=== PATIENT | male | born 1960 | race Hispanic/Latino ===

== ENCOUNTER 2016-08-01 16:55 | Emergency (ER) | payer OTHER ==
[~2016-08-01] VITALS: Ht 180.3 cm; Wt 85.9 kg
[~2016-08-01 16:55] MED LIST: ALPRAZOLAM2 MG PO; AMBIEN5 M1; ATARAX,VISTARIL25 MG PO; AUGMENTIN 875-1 EACH PO; AVINZA30 MG PO; Bactrim,Septra DS 80 PO; COLACE100 MG PO; CYCLOBENZAPRINE10 MG PO; DESYREL100 MG PO; DESYREL300 MG PO; DULCOLAX5 MG PO; DUONEB3 ML IH; Desyrel 150 MG Tab PO; Dilaudid PO; ENDOCET 5-3251 EACH PO; FLEXERIL5 MG PO; Flexeril PO; INDOCIN25 MG PO; Keflex PO; LEVOQUIN; LIDODERM 5% P1 PATCH TD; LORAZEPAM0.5 MG PO; LORCET PO; MIRALAX17 GM PO; MOBIC15 MG PO; MOBIC7.5 MG PO; MORPHINE SULFAT30 M1 PO; MORPHINE SULFAT60 MG PO; OXYCODONE HCL15 MG PO; PERCOCET 10-321 EACH PO; PERCOCET 5/31 TABLET PO; PREDNISONE10 MG PO; PREDNISONE20 MG PO; PROVENTIL,2.5 MG/0.5 IH; Proventil,Ventolin H IH; SERTRALINE HCL100 MG PO; VENTOLIN INHALER IH; ZOLOFT100 MG PO; ZOLOFT50 MG PO; Zoloft PO; [UNRECOGNIZED DRUG - OTHER] IH
[2016-08-01] MEDS ORDERED: PREDNISONE20 MG PO (19:29)
[2016-08-01] MEDS ORDERED: FIORICET 50-301 EACH PO (19:29)
[2016-08-01] MEDS ORDERED: VALIUM5 MG PO ×2 (19:29→19:35)
[2016-08-01 19:52] VITALS: BP 150/84
== END 2016-08-01 19:54 | disposition home or self-care (01) ==
LOC: EME 16:55 → EXP 16:55
DX: M50.30 Other cervical disc degeneration, unspecified cervical region (principal); M62.838 Other muscle spasm; G44.209 Tension-type headache, unspecified, not intractable; J44.9 Chronic obstructive pulmonary disease, unspecified; I10 Essential (primary) hypertension; K21.9 Gastro-esophageal reflux disease without esophagitis; F17.200 Nicotine dependence, unspecified, uncomplicated
CPT/HCPCS: 99281; 99284; J7512

== ENCOUNTER 2016-08-16 02:00 | Emergency (ER) | payer OTHER ==
[~2016-08-16] VITALS: Ht 180.3 cm; Wt 86.9 kg
[~2016-08-16 02:00] MED LIST changes: +FIORICET 50-301 EACH PO; +VALIUM5 MG PO
[2016-08-16 02:27] LABS: HEMATOCRIT 44.1 % (38.0-50.0); MCH 27.4 PG (29.0-34.0); MCHC 32.7 G/DL (30.0-36.0); MCV 83.8 FL (86-99); MEAN PLAT.VOLUME 9.8 uM^3 (9.0-12.4); PLATELET COUNT 304 K/uL (156-360); RBC DIS.WIDTH-CV 13.2 % (11.8-14.6); RBC DIS.WIDTH-SD 40.5 % (39-53); RED BLOOD COUNT 5.26 M/uL (4.00-5.50); WHITE BLOOD COUNT 10.7 K/uL (4.1-10.2)
[2016-08-16 02:38] LABS: CHLORIDE 108 mEq/L (99-109); POTASSIUM 3.5 mEq/L (3.7-5.4); SODIUM 143 mEq/L (136-147)
[2016-08-16 02:40] LABS: GLUCOSE 100 mg/dL (70-99)
[2016-08-16 02:41] LABS: ANION GAP 10 MEQ/L (2-14)
[2016-08-16 02:44] LABS: GFR ESTIMATE (CALCULATED) > 59 mL/min/; UREA NITROGEN (BUN) 17 mg/dL (9-23)
[2016-08-16 02:48] LABS: TROP-I INTERPRETATION NEGATIVE; TROPONIN-I < 0.01 ng/mL (0.0-0.30)
[2016-08-16 05:29] LABS: TROP-I INTERPRETATION NEGATIVE; TROPONIN-I < 0.01 ng/mL (0.0-0.30)
[2016-08-16 06:01] VITALS: BP 129/86
== END 2016-08-16 06:03 | disposition home or self-care (01) ==
LOC: EME 02:00
PROVIDERS: Emergency Medicine
DX: R07.9 Chest pain, unspecified (principal); Z82.49 Family history of ischemic heart disease and other diseases of the circulatory system; F17.200 Nicotine dependence, unspecified, uncomplicated
CPT/HCPCS: 71020; 80048; 84484; 85027; 93005; 99281; 99284

== ENCOUNTER 2017-04-07 18:48 | Emergency (ER) | payer OTHER ==
[~2017-04-07] VITALS: Ht 180.3 cm; Wt 84.6 kg
[2017-04-07 22:28] VITALS: BP 148/83
== END 2017-04-07 22:31 | disposition home or self-care (01) ==
LOC: EME 18:48
DX: S29.012A Strain of muscle and tendon of back wall of thorax, initial encounter (principal); S56.116A Strain of flexor muscle, fascia and tendon of left ring finger at forearm level, initial encounter; W18.39XA Other fall on same level, initial encounter; K21.9 Gastro-esophageal reflux disease without esophagitis; J44.9 Chronic obstructive pulmonary disease, unspecified; I10 Essential (primary) hypertension; G89.29 Other chronic pain; F41.9 Anxiety disorder, unspecified; F32.9 Major depressive disorder, single episode, unspecified; Z87.891 Personal history of nicotine dependence; Z88.0 Allergy status to penicillin; Z88.6 Allergy status to analgesic agent
CPT/HCPCS: 72070; 72100; 73140; 99281; 99284; J3010

== ENCOUNTER 2017-06-26 18:17 | Emergency (ER) | payer OTHER ==
[~2017-06-26] VITALS: Ht 180.3 cm; Wt 82.8 kg
[2017-06-26 21:39] LABS: HEMATOCRIT 41.7 % (38.0-50.0); HEMOGLOBIN 13.7 G/DL (12.5-16.6); MCHC 32.9 G/DL (30.0-36.0); MCV 85.1 FL (86-99); PLATELET COUNT 273 K/uL (156-360); RBC DIS.WIDTH-CV 13.1 % (11.8-14.6); RBC DIS.WIDTH-SD 40.6 % (39-53); WHITE BLOOD COUNT 7.1 K/uL (4.1-10.2)
[2017-06-26 21:51] LABS: ALBUMIN 4.2 g/dL (3.2-4.8); CHLORIDE 107 mEq/L (99-109); POTASSIUM 4.5 mEq/L (3.7-5.4); SODIUM 143 mEq/L (136-147)
[2017-06-26 21:54] LABS: GLUCOSE 93 mg/dL (70-99); TOTAL PROTEIN 6.9 g/dL (6.4-8.3)
[2017-06-26 21:56] LABS: TOTAL BILIRUBIN 0.4 mg/dL (0.0-1.0)
[2017-06-26 21:57] LABS: ALKALINE PHOSPHATASE 108 IU/L (3-129); GFR ESTIMATE (CALCULATED) > 59 mL/min/ (58.99-99999)
[2017-06-26 21:58] LABS: UREA NITROGEN (BUN) 12 mg/dL (9-23)
[2017-06-26 21:59] LABS: AST (GOT) 17 IU/L (2-34)
[2017-06-26 22:00] LABS: ALT (GPT) 16 IU/L (3-49)
[2017-06-26 22:40] LABS: APPEARANCE CLEAR ((CLEAR)); BILIRUBIN NEGATIVE; BLOOD NEGATIVE; COLOR STRAW ((YELLOW)); GLUCOSE (STRIP) NEGATIVE; KETONES NEGATIVE; LEUKOCYTES NEGATIVE; NITRITE NEGATIVE; PROTEIN (STRIP) NEGATIVE; SPECIFIC GRAVITY 1.006 (1.000-1.030); UCUL ADDED? NO; UROBILINOGEN 0.2 MG/DL (0.2-1.0)
[2017-06-26] MEDS ORDERED: ULTRACET1 TABLET PO (22:51)
[2017-06-26 23:06] VITALS: BP 137/79
== END 2017-06-26 23:07 | disposition home or self-care (01) ==
LOC: EME 18:17
PROVIDERS: Physician Assistant Medical
DX: R10.9 Unspecified abdominal pain (principal); Z88.0 Allergy status to penicillin; Z88.6 Allergy status to analgesic agent
CPT/HCPCS: 74176; 80053; 81003; 85027; 99281; 99284

== ENCOUNTER 2017-07-01 01:14 | Emergency (ER) | payer OTHER ==
[~2017-07-01] VITALS: Ht 180.3 cm; Wt 81.8 kg
[~2017-07-01 01:14] MED LIST changes: +ULTRACET1 TABLET PO
[2017-07-01 01:33] LABS: HEMATOCRIT 41.9 % (38.0-50.0); HEMOGLOBIN 13.9 G/DL (12.5-16.6); MCH 27.8 PG (29.0-34.0); MCHC 33.2 G/DL (30.0-36.0); MCV 83.8 FL (86-99); PLATELET COUNT 277 K/uL (156-360); RBC DIS.WIDTH-SD 39.5 % (39-53); WHITE BLOOD COUNT 6.8 K/uL (4.1-10.2)
[2017-07-01 01:41] LABS: CHLORIDE 107 mEq/L (99-109); POTASSIUM 4.2 mEq/L (3.7-5.4); SODIUM 141 mEq/L (136-147)
[2017-07-01 01:43] LABS: GLUCOSE 97 mg/dL (70-99)
[2017-07-01 01:47] LABS: CREATININE 1.1 mg/dL (0.6-1.3); GFR ESTIMATE (CALCULATED) > 59 mL/min/ (58.99-99999); UREA NITROGEN (BUN) 11 mg/dL (9-23)
[2017-07-01 01:54] LABS: TROP-I INTERPRETATION NEGATIVE; TROPONIN-I 0.01 ng/mL (0.0-0.30)
[2017-07-01 02:58] VITALS: BP 148/108
== END 2017-07-01 02:59 | disposition home or self-care (01) ==
LOC: EME 01:14
DX: R07.89 Other chest pain (principal); F32.9 Major depressive disorder, single episode, unspecified; Z63.4 Disappearance and death of family member; I10 Essential (primary) hypertension; J44.9 Chronic obstructive pulmonary disease, unspecified; K21.9 Gastro-esophageal reflux disease without esophagitis; M54.9 Dorsalgia, unspecified; M54.2 Cervicalgia; G89.29 Other chronic pain; G43.909 Migraine, unspecified, not intractable, without status migrainosus; F41.9 Anxiety disorder, unspecified; Z87.19 Personal history of other diseases of the digestive system; Z88.0 Allergy status to penicillin; Z88.6 Allergy status to analgesic agent
CPT/HCPCS: 71046; 80048; 84484; 85027; 93005; 99281; 99285

== ENCOUNTER 2017-08-24 19:34 | Emergency (ER) | payer OTHER ==
[~2017-08-24] VITALS: Ht 180.3 cm; Wt 81.4 kg
[2017-08-24 20:20] LABS: HEMATOCRIT 38.9 % (38.0-50.0); HEMOGLOBIN 12.8 G/DL (12.5-16.6); MCH 27.4 PG (29.0-34.0); MCHC 32.9 G/DL (30.0-36.0); MCV 83.3 FL (86-99); PLATELET COUNT 303 K/uL (156-360); RBC DIS.WIDTH-SD 39.3 % (39-53); RED BLOOD COUNT 4.67 M/uL (4.00-5.50); WHITE BLOOD COUNT 13.7 K/uL (4.1-10.2)
[2017-08-24 20:32] LABS: CHLORIDE 107 mEq/L (99-109); POTASSIUM 4.1 mEq/L (3.7-5.4); SODIUM 140 mEq/L (136-147)
[2017-08-24 20:34] LABS: GLUCOSE 92 mg/dL (70-99)
[2017-08-24 20:38] LABS: CREATININE 0.9 mg/dL (0.6-1.3); GFR ESTIMATE (CALCULATED) > 59 mL/min/ (58.99-99999)
[2017-08-24 20:39] LABS: UREA NITROGEN (BUN) 10 mg/dL (9-23)
[2017-08-24 20:43] LABS: TROP-I INTERPRETATION NEGATIVE; TROPONIN-I < 0.01 ng/mL (0.0-0.30)
[2017-08-24 22:09] LABS: APPEARANCE CLEAR ((CLEAR)); BILIRUBIN NEGATIVE; BLOOD NEGATIVE; COLOR STRAW ((YELLOW)); GLUCOSE (STRIP) NEGATIVE; KETONES NEGATIVE; LEUKOCYTES NEGATIVE; NITRITE NEGATIVE; PROTEIN (STRIP) NEGATIVE; SPECIFIC GRAVITY 1.006 (1.000-1.030); UCUL ADDED? NO; UROBILINOGEN 0.2 MG/DL (0.2-1.0)
[2017-08-24 23:56] VITALS: BP 136/93
== END 2017-08-24 23:57 | disposition home or self-care (01) ==
LOC: EME 19:34
PROVIDERS: Emergency Medicine
DX: R07.9 Chest pain, unspecified (principal); R91.8 Other nonspecific abnormal finding of lung field; R10.9 Unspecified abdominal pain; M54.9 Dorsalgia, unspecified; R06.09 Other forms of dyspnea; R79.1 Abnormal coagulation profile; N20.0 Calculus of kidney; G89.29 Other chronic pain; Z79.891 Long term (current) use of opiate analgesic; Z87.891 Personal history of nicotine dependence
CPT/HCPCS: 71046; 71275; 74176; 80048; 81003; 84484; 85027; 85379; 93005; 99281; 99284; J1885

== ENCOUNTER → 2017-09-06 | Outpatient (CLI) | payer OTHER | END | disposition home or self-care (01) | LOC: RAD 11:33 | DX: R91.8 Other nonspecific abnormal finding of lung field (principal) | CPT/HCPCS: 71046 ==